=== PATIENT | female | born 1990 | race Two or more races ===

== ENCOUNTER 2016-03-22 02:14 | Emergency (ER) | payer OTHER ==
[~2016-03-22] VITALS: Ht 154.9 cm; Wt 68.0 kg
[2016-03-22 09:37] VITALS: BP 104/69
[2016-03-22] MEDS ORDERED: IBUPROFEN 600 MG TAB PO ONE (09:45)
== END 2016-03-22 09:56 | disposition home or self-care (01) ==
LOC: ER 02:14
DX: M25.512 Pain in left shoulder (principal); M79.642 Pain in left hand; S46.912A Strain of unspecified muscle, fascia and tendon at shoulder and upper arm level, left arm, initial encounter; V49.49XA Driver injured in collision with other motor vehicles in traffic accident, initial encounter; Y93.89 Activity, other specified; Y99.8 Other external cause status; Y92.410 Unspecified street and highway as the place of occurrence of the external cause
CPT/HCPCS: 70450; 72125; 73030; 82962; 93005